=== PATIENT | female | born 1955 | race Two or more races ===

== ENCOUNTER 2024-11-21 09:31 | Inpatient (IN) | payer OTHER, MEDICAID ==
[~2024-11-21] VITALS: Ht 157.5 cm; Wt 90.7 kg
[~2024-11-21 09:31] MED LIST: AMLO1TAB22; EZET10TA24; LISI20TA56; METF-1145; METH-552; PLAVIX
--- NOTE | 2024-11-21 10:31 | ED.PDOC ---
History of Present Illness HPI Comments 69-year-old female came to the ER stating that she has been having headache for the past several days. Has been having these headaches on and off for many years. Being followed at [facility] for the headaches with no workup. Patient also complain of having diabetes hypertension and CVA many times. Able to ambulate. Denies nausea vomiting dizziness. Denies any other symptoms. Chief Complaint: Headache Time Seen by MD: 09:40 Reviewed Notes: Nurses Notes, Medications, Allergies Allergies: Coded Allergies: NO KNOWN ALLERGIES (Unverified , 01/10/10) Home Meds Reported Medications Methimazole (Methimazole) 10 Mg Tab, 1 QAM 01/10/10 Ezetimibe-Simvastatin (Vytorin) 1 Tab Tab, DAILY 01/10/10 Metformin Hydrochloride (Metformin Hcl Er) 500 Mg Tab, 4 DAILY 01/10/10 Lisinopril (Lisinopril) 20 Mg Tab, 1 DAILY 01/10/10 Amlodipine Besylate (Amlodipine Besylate) 5 Mg Tab, 1 DAILY 01/10/10 [Plavix] No Conflict Check, 1 DAILY 01/10/10 Information Source: Patient Mode of Arrival: Ambulatory Severity: Moderate Timing: Days Duration: Since onset Past Medical History PAST MEDICAL HISTORY: DM, HTN Surgical History: Denies all surgeries 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 History: No Pertinent 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 ANALYST History Social History Smoker: Non-Smoker Alcohol: Denies ETOH Use Drugs: Denies Drug Use Constitutional: denies: chills, diaphoresis, fatigue, fever, malaise, sweats, weakness, others EENTM: denies: blurred vision, double vision, ear bleeding, ear discharge, ear drainage, ear pain, ear ringing, eye pain, eye redness, hearing loss, mouth pain, mouth swelling, nasal discharge, nose bleeding, nose congestion, nose pain, photophobia, tearing, throat pain, throat swelling, voice changes, others Respiratory: denies: cough, hemoptysis, orthopnea, SOB at rest, shortness of breath, SOB with excertion, stridor, wheezing, others Cardiovascular: denies: chest pain, dizzy spells, diaphoresis, Dyspnea on exertion, edema, irregular heart beat, left arm pain, lightheadedness, palpitations, PND, syncope, others Gastrointestinal: denies: abdomen distended, abdominal pain, blood streaked bowels, constipated, diarrhea, dysphagia, difficulty swallowing, hematemesis, melena, nausea, poor appetite, poor fluid intake, rectal bleeding, rectal pain, vomiting, others Genitourinary: denies: abnormal vagina bleeding, burning, dyspareunia, dysuria, flank pain, frequency, hematuria, incontinence, pain, , vagina discharge, urgency, others Neurological: reports: headache; denies: dizziness, fainting, left sided numbness, left sided weakness, numbness, paresthesia, pre-existing deficit, right sided numbness, right sided weakness, seizure, speech problems, tingling, tremors, weakness, others Musculoskeletal: denies: back pain, gout, joint pain, joint swelling, muscle pain, muscle stiffness, neck pain, others Integumetry: denies: bruises, change in color, change in hair/nails, dryness, laceration, lesions, lumps, rash, wounds, others Allergic/Immunocompromised: denies: Difficulty Healing, Frequent Infections, Hives, Itching, others Hematologic/Lymphatic: denies: anemia, blood clots, easy bleeding, easy bruising, swollen glands, others Endocrine: denies: excessive hunger, excessive sweating, excessive thirst, excessive urination, flushing, intolerance to cold, intolerance to heat, unexplained weight gain, unexplained weight loss, others Psychiatric: denies: anxiety, bipolar disorder, depression, hopeless, panic disorder, schizophrenia, sleepless, suicidal, others Physical Exam General Appearance: Moderate Distress HEENT: Normal ENT Inspection, Pharynx Normal, TMs Normal Neck: Full Range of Motion, Non-Tender, Normal, Normal Inspection Respiratory: Chest Non-Tender, Lungs Clear, No Accessory Muscle Use, No Respiratory Distress, Normal Breath Sounds Cardiovascular: No Edema, No JVD, No Murmur, No Gallop, Normal Peripheral Pulses, Regular Rate/Rhythm Breast Exam: Deferred Gastrointestinal: No Organomegaly, Non Tender, No Pulsatile Mass, Normal Bowel Sounds, Soft Genitalia: Deferred Pelvic: Deferred Rectal: Deferred Extremities: No calf tenderness, Normal capillary refill, Normal inspection, Normal range of motion, Non-tender, No pedal edema Musculoskeletal : Apperance: Normal Neurologic: Alert, chancery clerk II-XII nml as Tested, No Motor Deficits, Normal Affect, Normal Mood, No Sensory Deficits Cerebellar Function: Normal Reflexes: Normal Skin: Dry, Normal Color, Warm Peripheral Pulses: 3+ Radial (R), 3+ Radial (L) Lymphatic: No Adenopathy Was a procedure done? Was a procedure done?: No Differential Dx Considerations may include: TIA Migraine X-Ray, Labs, Meds, VS Vital Signs Date Time Temp Pulse Resp B/P (MAP) Pulse Ox O2 Delivery O2 Flow Rate FiO2 11/21/24 11:14 98.7 69 16 158/72 (100) 97 98.7 11/21/24 11:14 69 16 97 Room Air 11/21/24 09:48 97.5 66 18 135/64 (87) 99 97.5 Current Medications Medications (Trade) Dose Ordered Sig/Kiran Route Start Time Stop Time Status Last Admin Acetaminophen/ Hydrocodone Bitart ([place] 10/325MG Tab) 1 tab ONCE ONCE PO 11/21/24 10:15 11/21/24 10:16 DC 11/21/24 11:13 [place] [address] Ph: [phone] DIAGNOSTIC IMAGING Diagnostic Imaging Report : [id number] Signed PATIENT: ANTHONY LOWE ACCT: [id number] UNIT: [id number] : 1955 LOC: ER ROOM / BED: / AGE / SEX: 69 / F ADM STATUS: REG ER SERVICE 1001 ORDERING PHYSICIAN: KM GUZMAN MD PROCEDURE(s): HWOCT - HEAD WITHOUT CONTRAST REASON: tia ORDER NUMBER(s): [id number], ACCESSION NUMBER(s): [id number] CT brain without contrast CLINICAL INDICATION: tia FINDINGS: The study was performed in a multidetector scanner. This study performed taking axial images from the skull base up to the vertex. Both brain and bone windows are photographed. Dose lowering techniques have been used including automated exposure control and adjustment of mA and/or KV according to patient size. No intraparenchymal hemorrhage. No extra-axial hemorrhage. There is an area of encephalomalacia in the right frontal lobe. Small lacunar infarct in the left external capsule/ lentiform nucleus. There is no hydrocephalus. No midline shift. There is bifrontal cortical sulcal prominence. IMPRESSION: 1. No acute intracranial pathology. Question subacute CVA versus resolving hematoma right frontal lobe Computed Tomographic Radiation Dosimetry Report: Total CTDI vol = 54.55mGy Total DLP = 1006.85mGy-cm All CT scans at this medical facility are performed using dose modulation techniques as appropriate to a performed exam including the following: Automated exposure control was utilized; adjustment of the MA and/or KvP according to patient size; and use of iterative reconstruction technique. ATED BY: PAUL DESAI MD DICTATED DATE/TIME: 11/21/24 103 SIGNED BY: PAUL DESAI MD SIGNED DATE/TIME: 11/21/241035 CC: Patient alert. Complaining of headache. Vitals stable. Answering all questions. Was given [place]pec[place]. CT of the head reviewed does not show any acute changes. Possibly will need can not duplex study. Possibly will need MRI. No neurological deficit. Has good strength in all extremities. No leg swelling. No chest pain. No shortness a breath. She was seen at [place] yesterday for which they discharged her without any further testing. Explained to the patient. [place] approved inpatient admission [id number]. Time of 1ST Reevaluation: 10:29 Reevaluation 1ST: Unchanged Patient Education/Counseling: Diagnosis, Treatment, Prognosis, Need For Follow Up Family Education/Counseling: No Family Present SEPSIS Sepsis Screen Date sepsis recognized/suspect: Nov 21, 2024 Time Sepsis recognized/suspect: 949 Recent Procedure: No On Antibiotic Therapy: No Respiratory Rate >20: No Heart Rate >90: No Temp<36 C (96.8 F) or >38.3 C: No SBP <90 or MAP <65 mmHG: No New Acute Mental Status Change: No Is the patient on CPAP, BIPAP,: No Physician Orders Head Without Contrast (11/21/24 10:01) Complete Blood Count (11/21/24 12:16) Urinalysis (11/21/24 12:16) Basic Metabolic Panel (11/21/24 12:16) Vital Signs Date Time Temp Pulse Resp B/P (MAP) Pulse Ox O2 Delivery O2 Flow Rate FiO2 11/21/24 11:14 98.7 69 16 158/72 (100) 97 98.7 11/21/24 11:14 69 16 97 Room Air 11/21/24 09:48 97.5 66 18 135/64 (87) 99 97.5 Medications Medications Dose Ordered Sig/Kiran Route Start Time Stop Time Status Last Admin Dose Admin Acetaminophen/ Hydrocodone Bitart 1 tab ONCE ONCE PO 11/21/24 10:15 11/21/24 10:16 DC 11/21/24 11:13 Departure 1 Departure Time of Disposition: 10:30 Impression: Primary Impression: TIA (transient ischemic attack) Additional Impression: Headache Qualified Codes: G44.229 - Chronic tension-type headache, not intractable Disposition: ADMITTED INPATIENT Admit to: Med Surg Condition: Guarded Critical Care Note Critical Care Time?: No Stability Stability form required: No Heart Score Heart Score: Heart Score Response (Comments) Value History N/A 0 EKG N/A 0 Age N/A 0 Risk Factors N/A 0 Troponin N/A 0 Total 0 I personally scribed for KM GUZMAN MD ([email or web address]) on 11/21/24 at 11:25. Electronically submitted by Sydnie Alberts ([email or web address]). KM GUZMAN MD Nov 21, 2024 10:31
--- NOTE | 2024-11-21 10:39 | DVH ---
CT brain without contrast CLINICAL INDICATION: tia FINDINGS: The study was performed in a multidetector scanner. This study performed taking axial image s from the skull base up to the vertex. Both brain and bone windows are photographed. Dose lowering techniques have been used including automated exposure control and adjustment of mA and /or KV according to patient size. No intraparenchymal hemorrhage. No extra-axial hemorrhage. There is an area of encephalomalacia in the right frontal lobe. Small lacunar infarct in the left ext ernal capsule/ lentiform nucleus. There is no hydrocephalus. No midline shift. There is bifrontal cortical sulcal prominence. IMPRESSION: 1. No acute intracranial pathology. Question subacute CVA versus resolving hematoma right frontal lob e Computed Tomographic Radiation Dosimetry Report: Total CTDI vol = 54.55mGy Total DLP = 1006.85mGy-cm All CT scans at this medical facility are performed using dose modulation techniques as appropriate t o a performed exam including the following: Automated exposure control was utilized; adjustment of th e MA and/or KvP according to patient size; and use of iterative reconstruction technique.
[2024-11-21 11:00] VITALS: PULSE 89; RESP 14; O2SAT 97
[2024-11-21] MEDS: HYDROcodone-ACET 10/325MG TAB PO ONE (11:13)
[2024-11-21 12:42] LABS: Basophils # (auto) 0.1 10 ^3/uL (0-0.2); Basophils % (auto) 0.8 % (0.0-2.0); Eosinophils # (auto) 0.2 10 ^3/uL (0-0.8); Eosinophils % (auto) 2.4 % (0.0-7.0); Hematocrit 43.1 % (36.0-46.0); Hemoglobin 14.6 g/dL (12.2-16.2); Lymphocytes # (auto) 1.8 10 ^3/uL (0.4-5.4); Lymphocytes % (auto) 27.3 % (10.0-50.0); Mean Corpuscular Hemoglobin 29.7 pg (28.0-32.0); Mean Corpuscular Hgb Conc. 33.9 g/dL (32.0-36.0); Mean Corpuscular Volume 87.5 fL (80.0-100.0); Monocytes # (auto) 0.4 10 ^3/uL (0-1.3); Monocytes % (auto) 6.1 % (0.0-12.0); Neutrophils # (auto) 4.1 10 ^3/uL (1.6-8.6); Neutrophils % (auto) 63.4 % (37.0-80.0); Platelet Count (auto) 179 10^3/uL (140-450); Red Blood Cells 4.93 10^6/uL (4.0-5.20); White Blood Cell 6.5 10^3/uL (4.4-10.8)
[2024-11-21 12:52] LABS: Potassium 3.8 mmol/L (3.5-5.1); Sodium 141 mmol/L (136-145)
[2024-11-21 12:53] LABS: Anion Gap 8 (5-15); Carbon Dioxide 26 mmol/L (20-31)
[2024-11-21 12:56] LABS: Chloride 107 mmol/L (98-107)
[2024-11-21 12:58] LABS: BUN/Creatinine Ratio 14.3 (10.0-20.0); Blood Urea Nitrogen 14 mg/dL (9-23); Glucose 160 mg/dL (74-106)
--- NOTE | 2024-11-21 13:35 | DVHHP2 ---
Review of Systems Allergies: Coded Allergies: NO KNOWN ALLERGIES (Unverified , 01/10/10) Exam Vital Signs Vital Signs Date Time Temp Pulse Resp B/P (MAP) Pulse Ox O2 Delivery O2 Flow Rate FiO2 11/21/24 11:14 98.7 69 16 158/72 (100) 97 98.7 11/21/24 11:14 Room Air Labs/Xrays Labs Test 11/21/24 12:24 Range/Units White Blood Count 6.5 4.4-10.8 10^3/uL Red Blood Count 4.93 4.0-5.20 10^6/uL Hemoglobin 14.6 12.2-16.2 g/dL Hematocrit 43.1 36.0-46.0 % Mean Corpuscular Volume 87.5 80.0-100.0 fL Mean Corpuscular Hemoglobin 29.7 28.0-32.0 pg Mean Corpuscular Hemoglobin Concent 33.9 32.0-36.0 g/dL Red Cell Distribution Width 15.0 H 11.8-14.3 % Platelet Count 179 140-450 10^3/uL Mean Platelet Volume 10.2 6.9-10.8 fL Neutrophils (%) (Auto) 63.4 37.0-80.0 % Lymphocytes (%) (Auto) 27.3 10.0-50.0 % Monocytes (%) (Auto) 6.1 0.0-12.0 % Eosinophils (%) (Auto) 2.4 0.0-7.0 % Basophils (%) (Auto) 0.8 0.0-2.0 % Neutrophils # (Auto) 4.1 1.6-8.6 10 ^3/uL Lymphocytes # (Auto) 1.8 0.4-5.4 10 ^3/uL Monocytes # (Auto) 0.4 0-1.3 10 ^3/uL Eosinophils # (Auto) 0.2 0-0.8 10 ^3/uL Basophils # (Auto) 0.1 0-0.2 10 ^3/uL Nucleated Red Blood Cells 0.0 % Sodium Level 141 136-145 mmol/L Potassium Level 3.8 3.5-5.1 mmol/L Chloride Level 107 98-107 mmol/L Carbon Dioxide Level 26 20-31 mmol/L Anion Gap 8 5-15 Blood Urea Nitrogen 14 9-23 mg/dL Creatinine 0.98 0.550-1.02 mg/dL Glomerular Filtration Rate Calc 62 >90 mL/min BUN/Creatinine Ratio 14.3 10.0-20.0 Serum Glucose 160 H 74-106 mg/dL Calcium Level 10.0 8.7-10.4 mg/dL Assessment/Plan Assessment/Plan acute intractable headache subacute stroke vs hematoma frontal head found on ct scan Neurology consult fu recs ordered MRI of the brain to be determined by neurology Stroke protocol and precautions PT OT eval and treat npo for now ordered asa atorvastatin ordered neuro checks q2h fall precautions Bedrest ordered Carotid Doppler study ordered Echo chronic problems dm htn cva fen/ppx npo hl no gi ppx since no hx of gerds or gi bleed no dvt ppx since ct scan shows ? hematoma plan admit to [facility] neuro check and close monitoring LOTTIE BARKER [facility] Nov 21, 2024 13:35
[2024-11-21] MEDS: HYDROcodone-ACET 5/325MG TAB PO ONE (18:42)
[2024-11-21] MEDS ORDERED: HYDROcodone-ACET 5/325MG TAB ONE (18:42)
--- NOTE | 2024-11-21 18:55 | PRN ---
Misceleneous Note Note Note i had spoke with er to call neurology prior to admitting patient this was at [address] scan ?hematoma on brain pt will likely need neurosx consult, which not available did tell escrow secretary Az that pt will be placed back on orders until er team reviewed with neurology if they will be able to handle patient results here still pending what er decision is before admission can be completed it appears pt will need higher level of care LOTTIE BARKER [facility] Nov 21, 2024 18:55
[2024-11-21 18:57] LABS: Urine Bacteria None Seen /hpf (None Seen)
[2024-11-21 19:38] LABS: Urine Blood Negative /uL (Negative); Urine Clarity Clear (Clear); Urine Color Yellow (Yellow); Urine Hyaline Cast FEW /lpf (0 - 2); Urine Mucus FEW (None Seen); Urine Protein, UAD TRACE (Negative); Urine Specific Gravity 1.025 (1.001-1.035); Urine Squamous Epithelial Cell FEW /hpf (<5); Urine Urobilinogen Normal (Negative); Urine WBC 3 /HPF (0-5); Urine pH 5.5 (5.0-9.0)
--- NOTE | 2024-11-21 19:50 | DVHINCON2 ---
Date of service: Nov 21, 2024 Referring Physician Roopa Reason for Consultation Subacute CVA versus hematoma right from lobe History of Present Illness This is a stat consult is a 69 years old right-handed female with a history of hypertension, diabetes, atrial fibrillation, chronic stroke, he came to the [facility] on 11/21 24 with a chief company of headache. At this time, he is alert and oriented x3, he provided following history She denies a history of headache (ER: Has been having these headaches on and off for many years), but since 11/16/2024, she has had constant progressive global headache, her vision became dark at home but has recovered to normal after she came to the hospital, she denies nausea, vomiting, she denies focal weakness numbness, she denies associated chills, fever, coughing, nausea, vomiting. She has no recent fall or head injury She had four strokes with the last one around 2004, the stroke were several years apart, all caused right facial drooping, left-sided weakness, and the patient was seen in the hospitals, and she was said to have stroke. According to her home medication list, he is on Pradaxa 150 mg b.i.d., but I do not see statin agent, he also takes diabetes and hypertension medications I noticed and the patient's confirm she is bed shaking in her arms, legs, he denies a history of tremors, but has been shaking in the hospital today because she has not been eating all day long, and she is very hungry. Talked to ER charge nurse, he is going to have a Accu-Chek and food Urinalysis, 11/21/2024: Unremarkable CBC, 11/21/2024: Unremarkable BMP, 11/21/2024: ok CT head, 11/21/2024: No acute intracranial pathology. Question subacute CVA versus resolving hematoma right frontal lobe (There is an area of encephalomalacia in the right frontal lobe. Small lacunar infarct in the left external capsule/ lentiform nucleus Past Medical History Hypertension, diabetes, AFib, stroke Past Surgical History Pacemaker insertion in 2022, heart valve repair Family History Hypertension, diabetes, cancer Social History She was a tobacco smoker, she denies a history of drug, or alcohol abuse Allergies: Coded Allergies: NO KNOWN ALLERGIES (Unverified , 8/15/10) Home Meds Reported Medications Methimazole (Methimazole) 10 Mg Tab, 1 QAM 01/10/10 Ezetimibe-Simvastatin (Vytorin) 1 Tab Tab, DAILY 01/10/10 Metformin Hydrochloride (Metformin Hcl Er) 500 Mg Tab, 4 DAILY 01/10/10 Lisinopril (Lisinopril) 20 Mg Tab, 1 DAILY 01/10/10 Amlodipine Besylate (Amlodipine Besylate) 5 Mg Tab, 1 DAILY 01/10/10 [Plavix] No Conflict Check, 1 DAILY 01/10/10 Review of Systems As above, the other systems are negative Vital Signs Vital Signs Date Time Temp Pulse Resp B/P (MAP) Pulse Ox O2 Delivery O2 Flow Rate FiO2 11/21/24 18:24 97.2 70 20 151/75 (100) 95 97.2 11/21/24 11:14 Room Air 11/21/24 11:00 0 21 Physical Exam GENERAL EXAM: General: the patient is well developed and nourished. No acute distress. HEENT: Normocephalic, neck is supple, no carotid bruits. No mass. RESPIRATORY: Normal respiratory effort with symmetrical lung expansion. Lungs clear to auscultation. CARDIOVASCULAR: Regular rate and rhythm with no murmurs. S1, S2. ABDOMEN: Soft, nontender, normal bowel sound NEUROLOGICAL: MENTAL STATUS: Awake and alert. Oriented to person, place, time. Able to give personal history. T SPEECH, LANGUAGE, HIGHER CORTICAL FUNCTION: no aphasia or dysathria. CRANIAL NERVES: #2: Intact visual motron to confrontation. The optic discs were sharp. #3,4,6: Pupils are equal, round and reactive. EOMs full and conjugate. #5: Facial sensation intact in all three divisions bilaterally. Mandibular strength intact. #7: Facial muscles symmetrical and strength intact. #8: Hearing grossly normal to voice. #9,10: Uvula and soft palate rise in the midline. Swallow and voice are normal. #11: Trapezius and sternomastoid strength intact bilaterally. #12: Tongue midline. No fasciculations or atrophy. SENSATION: Sensation to touch and pinprick is normal. MOTOR: Normal tone in the upper and lower extremity. Normal muscle bulk. No fasciculations. She has continuous tremor in the hands and legs, Muscle strength of the major groups in the upper extremities is 5/5. Muscle strength of the major groups in the lower extremities is 5/5. REFLEXES: Deep tendon reflexes normal and symmetrical. No pathological reflexes. CEREBELLAR/COORDINATION: Finger to nose is normal bilaterally. GAIT/STATION: Unremarkable Labs/Diagnostic Data Labs Test 11/21/24 18:40 11/21/24 12:24 Range/Units Urine Color Yellow Yellow Urine Clarity Clear Clear Urine pH 5.5 5.0-9.0 Urine Specific [place] 1.025 1.001-1.035 Urine Protein Trace H Negative Urine Ketones Negative Negative Urine Blood Negative Negative /uL Urine Nitrite Negative Negative Urine Bilirubin Negative Negative Urine Urobilinogen Normal Negative mg/dL Urine Leukocyte Esterase Negative Negative /uL Urine RBC 1 0 - 4 /hpf Urine Microscopic WBC 3 0-5 /HPF Urine Squamous Epithelial Cells Few <5 /hpf Urine Bacteria None seen None Seen /hpf Urine Hyaline Casts Few 0 - 2 /lpf Urine Mucus Few None Seen Urine Glucose Normal Normal mg/dL White Blood Count 6.5 4.4-10.8 10^3/uL Red Blood Count 4.93 4.0-5.20 10^6/uL Hemoglobin 14.6 12.2-16.2 g/dL Hematocrit 43.1 36.0-46.0 % Mean Corpuscular Volume 87.5 80.0-100.0 fL Mean Corpuscular Hemoglobin 29.7 28.0-32.0 pg Mean Corpuscular Hemoglobin Concent 33.9 32.0-36.0 g/dL Red Cell Distribution Width 15.0 H 11.8-14.3 % Platelet Count 179 140-450 10^3/uL Mean Platelet Volume 10.2 6.9-10.8 fL Neutrophils (%) (Auto) 63.4 37.0-80.0 % Lymphocytes (%) (Auto) 27.3 10.0-50.0 % Monocytes (%) (Auto) 6.1 0.0-12.0 % Eosinophils (%) (Auto) 2.4 0.0-7.0 % Basophils (%) (Auto) 0.8 0.0-2.0 % Neutrophils # (Auto) 4.1 1.6-8.6 10 ^3/uL Lymphocytes # (Auto) 1.8 0.4-5.4 10 ^3/uL Monocytes # (Auto) 0.4 0-1.3 10 ^3/uL Eosinophils # (Auto) 0.2 0-0.8 10 ^3/uL Basophils # (Auto) 0.1 0-0.2 10 ^3/uL Nucleated Red Blood Cells 0.0 % Sodium Level 141 136-145 mmol/L Potassium Level 3.8 3.5-5.1 mmol/L Chloride Level 107 98-107 mmol/L Carbon Dioxide Level 26 20-31 mmol/L Anion Gap 8 5-15 Blood Urea Nitrogen 14 9-23 mg/dL Creatinine 0.98 0.550-1.02 mg/dL Glomerular Filtration Rate Calc 62 >90 mL/min BUN/Creatinine Ratio 14.3 10.0-20.0 Serum Glucose 160 H 74-106 mg/dL Calcium Level 10.0 8.7-10.4 mg/dL Assessment New onset daily headache, etiology unclear Possible stroke versus resolving hematoma in right frontal lobe per CT scan Chronic multiple strokes (Per history and CT head) Tremors, possibly secondary to hypoglycemia Plan/Recommendation Monitoring Supportive treatment Telemetry Lipitor profile MRI brain scan Carotid Doppler Echocardiogram Continued home medications: Precedex 150 mg b.i.d. or Lovenox l More recommendation per clinical course Prognosis: Poor This medical document was created using an electronic medical record system with [employer] computerized dictation system. Although this document has been carefully reviewed, there may still be some phonetic and typographical errors. These areas are purely typographical due to imperfections of the software programs, and do not reflect any compromise in the patient's medical care. Plan discussed with: Patient, Other SRINATH PONCE MD Nov 21, 2024 19:50
[2024-11-21] MEDS ORDERED: LORazepam 2MG/ML-1ML VIAL IV PRN (21:00)
--- NOTE | 2024-11-21 21:34 | DVH ---
Carotid Duplex Date: 11/21/2024 08:55 PM Clinical History: CVA Comparison: None Technique: Duplex Doppler evaluation of the extracranial carotid and vertebral arteries including col or Doppler and spectral/pulsed waveform analysis was performed. Findings: RIGHT SIDE: The peak systolic velocities are 56 cm/s in the distal CCA and 71 cm/s in the proximal ICA.The ICA/CC A ratio is less than 2. The external carotid artery is patent with peak systolic velocity of 64 cm/s proximally. There is appropriate antegrade flow in the right vertebral artery. LEFT SIDE: The peak systolic velocities are 32 cm/s in the distal CCA and 84 cm/s in the proximal ICA.. The ICA/ CCA ratio is less than 2. The external carotid artery is patent with peak systolic velocity of 56 cm/s proximally. There is appropriate antegrade flow in the left vertebral artery. IMPRESSION: 1. No hemodynamically significant stenosis noted in the right carotid system. 2. No hemodynamically significant stenosis noted in the left carotid system. 3. Reference: Radiology 2003; 229:340-346
[2024-11-21 22:00] VITALS: PULSE 79; RESP 14; O2SAT 99
[2024-11-21] MEDS: ENOXAPARIN SOD 100 MG/1 ML SYRINGE SC SCH (22:40)
[2024-11-21] MEDS ORDERED: ENOXAPARIN SOD 100 MG/1 ML SYRINGE SC ONE (22:41)
[2024-11-22] VITALS (8 sets, daily range): BP systolic 126–144; BP diastolic 53–86; PULSE 67–81; RESP 17–18; TEMP 97.4–98; O2SAT 94–98
[2024-11-22] MEDS ORDERED: ACETAMINOPHEN 325 MG TAB PO PRN (01:45)
[2024-11-22] MEDS: ACETAMINOPHEN 325 MG TAB PO ONE (02:04)
[2024-11-22] MEDS: IBUPROFEN 600 MG TAB PO ONE (02:04)
[2024-11-22] MEDS: GABAPENTIN 100 MG CAP PO ONE (02:16)
[2024-11-22] MEDS: INSULIN LANTUS (GLARGINE) 1 /0.01ml (100units/ml) SC ONE (02:17)
--- NOTE | 2024-11-22 04:39 | DVHHPRES ---
History of Present Illness Resident Creating Document: JHTrevaAdanCHRISTINE ArellanoJANET RESIDENT History of Present Illness Patient is a 69-year-old female with a past medical history of atrial fibrillation, hypertension, type 2 diabetes mellitus, multiple strokes, hyperlipidemia presented to the ER with a chief complaint of headache for the la st 4-5 days. Patient reported that she has been having headaches since the last 4-5 days which is on the right side, associated nausea and photophobia, chills denied any fever. Patient reported that she had an episode of blurred, dark vision for less than a minute 2 days ago, denied any history of fall or loss of consciousness. Patient denied any focal weakness. She does report history of migraine headaches. From the history of strokes patient has a residual left- sided mild weakness and earlier she used to have a stick to help with the walking but now she walks independently. Patient denied any difficulty swallowing, no difficulty with the speech. Initial head CT without contrast showed questionable subacute CVA versus resolving hematoma of the right frontal lobe, no acute intracranial pathology following which neurology were consulted who recommended the patient to get an MRI, carotid Doppler, echocardiogram and continue monitoring. Past medical history: atrial fibrillation, hypertension, type 2 diabetes mellitus, multiple strokes, hyperlipidemia, arthritis, peripheral neuropathy Past surgical history: Open heart surgery for valve repair in 1968, pacemaker in 2021 Social history: Patient lives at home and denies smoking, alcohol, drug use Home medications: Dabigatran 150 mg b.i.d., bisoprolol 5 mg daily, hydralazine 50 mg b.i.d., lisinopril 20 mg b.i.d., rosuvastatin 20 mg daily, insulin Lantus 6 units HS, amlodipine 5 mg daily, amiodarone 100 mg daily, gabapentin 100 mg at bedtime Review of Systems Review of Systems Patient seen and examined at the bedside Reported that her headache intensity has decreased to about 7/10, right-sided with the associated photophobia still present Denies any nausea, vomiting, abdominal pain No focal weakness, no difficulty in speech or hearing or swallowing or vision Allergies: Coded Allergies: NO KNOWN ALLERGIES (Unverified , 01/10/10) Medications Current Medications Medications Dose Ordered Sig/Kiran Route Start Time Stop Time Status Last Admin Dose Admin Lorazepam 1 mg ONCE PRN IV 11/21/24 21:00 Enoxaparin Sodium 90 mg Q12HR SC 11/21/24 22:00 11/21/24 22:40 90 MG Ibuprofen 600 mg Q8HP PRN PO 11/22/24 01:45 Acetaminophen 650 mg Q6HP PRN PO 11/22/24 01:45 Hydralazine HCl 50 mg Q12HR PO 11/22/24 10:00 Lisinopril 20 mg DAILY PO 11/22/24 10:00 Pantoprazole Sodium 40 mg DAILY@0600 PO 11/22/24 06:00 Insulin Glargine 6 units HS SC 11/22/24 22:00 Amiodarone HCl 100 mg DAILY PO 11/22/24 10:00 Gabapentin 100 mg HS PO 11/22/24 22:00 Exam Vital Signs Vital Signs Date Time Temp Pulse Resp B/P (MAP) Pulse Ox O2 Delivery O2 Flow Rate FiO2 11/22/24 01:02 75 155/59 (91) 11/22/24 00:00 98.0 16 94 98.0 11/21/24 22:00 Room Air* 0 21 Exam Constipation: Patient was alert and oriented to time, place and person and does not appear to be in acute distress Gen - no pallor, no icterus, no cyanosis, no clubbing, no LAD, no edema . Skin - Patients skin is warm and dry. HEENT - normocephalic, atraumatic, moist mucous membranes. Neck - full ROM, no LAD, no JVD Pulmonary - B/L equal air entry without any rales, wheezes cardiovascular - normal S1,S2 heard. no murmurs heard. GI - soft abdomen without tenderness to palpation. no hepatospleenomegaly. [place] el sounds normoactive Neurological - Sensory: Bilateral sensation to touch, temperature and position intact Motor: Left upper and lower extremity strength 4/5, right upper and lower extremity strength 5/5 Cranial nerves CN 2- grossly normal CN 3,4,6- grossly normal normal CN 5- normal facial sensation and jaw strength CN 7- normal facial muscle strength CN 8- grossly normal CN 9,10- uvula central CN 12- tongue midline Labs/Xrays Labs Test 11/22/24 02:13 11/21/24 18:40 11/21/24 12:24 Range/Units POC Glucose 311 H 70-106 mg/dl Urine Color Yellow Yellow Urine Clarity Clear Clear Urine pH 5.5 5.0-9.0 Urine Specific [place] 1.025 1.001-1.035 Urine Protein Trace H Negative Urine Ketones Negative Negative Urine Blood Negative Negative /uL Urine Nitrite Negative Negative Urine Bilirubin Negative Negative Urine Urobilinogen Normal Negative mg/dL Urine Leukocyte Esterase Negative Negative /uL Urine RBC 1 0 - 4 /hpf Urine Microscopic WBC 3 0-5 /HPF Urine Squamous Epithelial Cells Few <5 /hpf Urine Bacteria None seen None Seen /hpf Urine Hyaline Casts Few 0 - 2 /lpf Urine Mucus Few None Seen Urine Glucose Normal Normal mg/dL White Blood Count 6.5 4.4-10.8 10^3/uL Red Blood Count 4.93 4.0-5.20 10^6/uL Hemoglobin 14.6 12.2-16.2 g/dL Hematocrit 43.1 36.0-46.0 % Mean Corpuscular Volume 87.5 80.0-100.0 fL Mean Corpuscular Hemoglobin 29.7 28.0-32.0 pg Mean Corpuscular Hemoglobin Concent 33.9 32.0-36.0 g/dL Red Cell Distribution Width 15.0 H 11.8-14.3 % Platelet Count 179 140-450 10^3/uL Mean Platelet Volume 10.2 6.9-10.8 fL Neutrophils (%) (Auto) 63.4 37.0-80.0 % Lymphocytes (%) (Auto) 27.3 10.0-50.0 % Monocytes (%) (Auto) 6.1 0.0-12.0 % Eosinophils (%) (Auto) 2.4 0.0-7.0 % Basophils (%) (Auto) 0.8 0.0-2.0 % Neutrophils # (Auto) 4.1 1.6-8.6 10 ^3/uL Lymphocytes # (Auto) 1.8 0.4-5.4 10 ^3/uL Monocytes # (Auto) 0.4 0-1.3 10 ^3/uL Eosinophils # (Auto) 0.2 0-0.8 10 ^3/uL Basophils # (Auto) 0.1 0-0.2 10 ^3/uL Nucleated Red Blood Cells 0.0 % Sodium Level 141 136-145 mmol/L Potassium Level 3.8 3.5-5.1 mmol/L Chloride Level 107 98-107 mmol/L Carbon Dioxide Level 26 20-31 mmol/L Anion Gap 8 5-15 Blood Urea Nitrogen 14 9-23 mg/dL Creatinine 0.98 0.550-1.02 mg/dL Glomerular Filtration Rate Calc 62 >90 mL/min BUN/Creatinine Ratio 14.3 10.0-20.0 Serum Glucose 160 H 74-106 mg/dL Calcium Level 10.0 8.7-10.4 mg/dL Assessment/Plan Assessment/Plan Acute intractable headache Possible migraine Possible stroke versus resolving hematoma and right frontal lobe History of multiple strokes - CT head without contrast showed no acute intracranial abnormality but questionable subacute CVA versus resolving hematoma right frontal lobe - bilateral carotid Doppler showed no hemodynamically significant stenosis - at home patient is on rosuvastatin - MRI pending - ibuprofen and acetaminophen for headache History of paroxysmal atrial fibrillation S/p permanent pacemaker implantation in 2022 Hypertensive heart disease - continued on amiodarone and inpatient started on enoxaparin - patient at home on lisinopril 20 mg b.i.d., amiodarone amlodipine 5 mg, hydralazine 50 mg b.i.d. - continue on lisinopril 20 mg daily and hydralazine 50 mg b.i.d. Type 2 diabetes mellitus with a hyperglycemia Neuropathy likely due to uncontrolled diabetes - HbA1c pending - at home patient is on insulin Lantus 6 units HS - continued on insulin Lantus at 10 units and mild sliding scale - on gabapentin PUD prophylaxis: Protonix DVT prophylaxis: Enoxaparin therapeutic dose Goals of care discussed with the patient for over 21 minutes. Full code Time spent: 37 minutes Plan discussed with Dr. Dickinson Plan discussed with: Patient My Orders Orders - BALBINA VARGAS RESIDENT Procedure Category Date Status Time Admit ADMIT 11/21/24 Transmitted 23:52 Oxygen By Nasal RT 11/21/24 Transmitted Cannula 23:52 Stat Ekg For Chest ANDERS 11/21/24 In Process Pain 23:52 Notify Of Changes ANDERS 11/21/24 In Process From Base 23:52 Cuff Slitter For ANDERS 11/21/24 In Process 24 Hours 23:52 Emergency Dysrhythmia ANDERS 11/21/24 In Process Protocol 23:52 Ibuprofen Tablet PHA 11/22/24 In Process (Motrin Tablet) 01:45 Acetaminophen Tablet PHA 11/22/24 In Process (Tylenol Tablet) 01:45 Hydralazine Hcl PHA 11/22/24 In Process Tablet (Apresoline 10:00 Lisinopril Tablet PHA 11/22/24 In Process (Zestril Tablet) 10:00 Pantoprazole Tablet PHA 11/22/24 In Process (Protonix Tablet) 06:00 Insulin Lantus PHA 11/22/24 In Process (Glargine) (Lantus) 22:00 Complete Blood Count LAB 11/22/24 Logged 05:00 Comprehensive LAB 11/22/24 Logged Metabolic Panel 05:00 Folate (Folic Acid) LAB 11/22/24 Logged 05:00 Hemoglobin A1c LAB 11/22/24 Logged 05:00 Lipid Panel LAB 11/22/24 Logged 05:00 Vitamin B12 LAB 11/22/24 Logged 05:00 Amiodarone Tablet PHA 11/22/24 In Process (Cordarone Tablet) 10:00 Gabapentin Capsule PHA 11/22/24 In Process (Neurontin Capsule) 22:00 Date of Service: Nov 21, 2024 Billing Provider: LOBO DICKINSON MD Common Visit Codes: [id number] INP/OBS CARE (HIGH) Secondary Visit Codes: [id number] CARE PLAN 30 MINUTES BALBINA VARGAS RESIDENT Nov 22, 2024 04:39
[2024-11-22] MEDS ORDERED: DEXTROSE (50%) 50ML SYRG IV PRN (04:45)
[2024-11-22] MEDS: ACCU-CHEK COMFORT CURVE STRIP VI SCH (06:15)
[2024-11-22] MEDS: PANTOPRAZOLE 40 MG TAB PO SCH (06:15)
[2024-11-22] MEDS: InsuLIN REG 1unit/0.01ml Soln (100units/ml) SC SCH (06:24)
[2024-11-22 06:37] LABS: Basophils # (auto) 0 10 ^3/uL (0-0.2); Basophils % (auto) 0.8 % (0.0-2.0); Eosinophils # (auto) 0.1 10 ^3/uL (0-0.8); Eosinophils % (auto) 2.1 % (0.0-7.0); Hematocrit 40.5 % (36.0-46.0); Hemoglobin 13.6 g/dL (12.2-16.2); Lymphocytes # (auto) 2.1 10 ^3/uL (0.4-5.4); Mean Corpuscular Hemoglobin 29.4 pg (28.0-32.0); Mean Corpuscular Hgb Conc. 33.7 g/dL (32.0-36.0); Mean Corpuscular Volume 87.2 fL (80.0-100.0); Monocytes # (auto) 0.5 10 ^3/uL (0-1.3); Monocytes % (auto) 8.4 % (0.0-12.0); Neutrophils # (auto) 3.5 10 ^3/uL (1.6-8.6); Neutrophils % (auto) 55.7 % (37.0-80.0); Platelet Count (auto) 160 10^3/uL (140-450); Red Blood Cells 4.64 10^6/uL (4.0-5.20); Red Cell Distribution Width 14.7 % (11.8-14.3); White Blood Cell 6.3 10^3/uL (4.4-10.8)
[2024-11-22] MEDS ORDERED: AMIO200T33 PO (06:41)
[2024-11-22] MEDS ORDERED: INSU100I70 SC (06:41)
[2024-11-22] MEDS ORDERED: DICL75TA3 PO (06:41)
[2024-11-22] MEDS ORDERED: GABA-1308 PO (06:42)
[2024-11-22] MEDS ORDERED: ROSU20TA14 PO (06:42)
[2024-11-22] MEDS ORDERED: AZEL0.1S (06:42)
[2024-11-22] MEDS ORDERED: HYDR25TA88 PO (06:42)
[2024-11-22] MEDS ORDERED: OMEP20TA PO (06:42)
[2024-11-22] MEDS ORDERED: BISO5TAB44 PO (06:42)
[2024-11-22 06:47] LABS: INR 1.08 (0.9-1.15); Partial Thromboplastin Time 42.7 SEC (24.5-34.5); Prothrombin Time 11.4 sec (9.3-11.8)
[2024-11-22 06:48] LABS: Alanine Aminotransferase 10 U/L (7-40); Alkaline Phosphatase 73 U/L (46-116); Anion Gap 10 (5-15); BUN/Creatinine Ratio 13.6 (10.0-20.0); Blood Urea Nitrogen 14 mg/dL (9-23); Calcium 9.9 mg/dL (8.7-10.4); Carbon Dioxide 24 mmol/L (20-31); LDL Cholesterol 52 mg/dL (< 100); Potassium 3.7 mmol/L (3.5-5.1); Sodium 142 mmol/L (136-145); Total Protein 6.2 g/dL (5.7-8.2); Triglycerides 129 mg/dL (< 150)
[2024-11-22 06:49] LABS: Albumin 3.9 g/dL (3.2-4.8); Aspartate Aminotransferase 15 U/L (<34); Bilirubin, Total 0.4 mg/dL (0.2-1.0); Cholesterol 112 mg/dL (< 200); Folate (Folic Acid) 17.02 ng/mL (>5.38); HDL Cholesterol 42 mg/dL (40-59)
[2024-11-22 06:51] LABS: Chloride 108 mmol/L (98-107); Glucose 200 mg/dL (74-106)
[2024-11-22] MEDS: hydrALAZINE HCL 25 MG TAB PO SCH (09:15)
[2024-11-22] MEDS: LISINOPRIL 20 MG TAB PO SCH (09:16)
[2024-11-22] MEDS: AMIODARONE HCL 200 MG TAB PO SCH (09:17)
--- NOTE | 2024-11-22 14:21 | DVH ---
PROCEDURE: MRI BRAIN HEAD WO CONTRAST Indication: CVA COMPARISON: CT head from 11/21/2024 TECHNIQUE: Multiplanar multisequence images of the brain are obtained. FINDINGS: There is no abnormal diffusion restriction. Right frontal encephalomalacia. Prominent left basal gang alexis perivascular space. There is no intracranial hemorrhage. No extra-axial fluid collection, mass ef fect or midline shift. The ventricles are midline and normal in size. The cisterns are patent. Normal intracranial flow voids are preserved. Numerous scattered foci susceptibility diffusely throughout t he cerebrum and posterior fossa in cortical and subcortical locations. The sinuses and mastoids are well pneumatized. The visualized orbits are unremarkable. IMPRESSION: No acute cerebrovascular ischemia. Right frontal encephalomalacia. Extensive susceptibility foci diffusely which could represent sequela of hypertensive versus amyloid angiopathy. Correlate clinically.
--- NOTE | 2024-11-22 15:52 | DVHPNRES ---
Progress Note Date Seen: Nov 22, 2024 Resident Creating Document: CY TURNER RESIDENT Medical Necessity Reason Pt with a Central, PICC or Fol: No Subjective Review of Systems 69-year-old female with a past medical history of atrial fibrillation, hypertension, type 2 diabetes mellitus, multiple strokes, hyperlipidemia presented to the ER with a chief complaint of headache for the last 4-5 days. Patient reported that she has been having headaches since the last 4-5 days which is on the right side, associated nausea and photophobia, chills denied any fever. Patient reported that she had an episode of blurred, dark vision for less than a minute 2 days ago, denied any history of fall or loss of consciousness. Patient denied any focal weakness. She does report history of migraine headaches. From the history of strokes patient has a residual left- sided mild weakness and earlier she used to have a stick to help with the walking but now she walks independently. Patient denied any difficulty swallowing, no difficulty with the speech. Initial head CT without contrast showed questionable subacute CVA versus resolving hematoma of the right frontal lobe, no acute intracranial pathology following which neurology were consulted who recommended the patient to get an MRI, carotid Doppler, echocardiogram and continue monitoring. Doppler shows no Cariiiiiiiotid artery stenosis. Objective vital signs Vital Sign Date Time Temp Pulse Resp B/P (MAP) Pulse Ox O2 Delivery O2 Flow Rate FiO2 11/22/24 14:29 97.5 69 17 140/79 (99) 96 97.5 11/22/24 08:00 Room Air* 0 21 Total Intake and Output 11/21/24 11/21/24 11/22/24 15:00 23:00 07:00 Intake Total 0 ml Balance 0 ml medications Current Medications Medications Dose Ordered Sig/Kiran Route Start Time Stop Time Status Last Admin Dose Admin Lorazepam 1 mg ONCE PRN IV 11/21/24 21:00 Ibuprofen 600 mg Q8HP PRN PO 11/22/24 01:45 Acetaminophen 650 mg Q6HP PRN PO 11/22/24 01:45 Hydralazine HCl 50 mg Q12HR PO 11/22/24 10:00 11/22/24 09:15 50 MG Lisinopril 20 mg DAILY PO 11/22/24 10:00 11/22/24 09:16 20 MG Pantoprazole Sodium 40 mg DAILY@0600 PO 11/22/24 06:00 11/22/24 06:15 40 MG Amiodarone HCl 100 mg DAILY PO 11/22/24 10:00 11/22/24 09:17 100 MG Gabapentin 100 mg HS PO 11/22/24 22:00 Atorvastatin Calcium 40 mg HS PO 11/22/24 22:00 Insulin Glargine 10 units HS SC 11/22/24 22:00 Diagnostic Test (Pha) 1 strip ACHS 11/22/24 07:00 11/22/24 11:44 1 STRIP Insulin Human Regular AC SC 11/22/24 07:00 11/22/24 06:24 2 UNITS Dextrose 50 ml UD PRN IV 11/22/24 04:45 Examination Gen - no pallor, no icterus, no cyanosis, no clubbing, no LAD, no edema . Skin - Patients skin is warm and dry. HEENT - normocephalic, atraumatic, moist mucous membranes. Neck - full ROM, no LAD, no JVD Pulmonary - B/L equal air entry without any rales, wheezes cardiovascular - normal S1,S2 heard. no murmurs heard. GI - soft abdomen without tenderness to palpation. no hepatospleenomegaly. Bowel sounds normoactive Neurological - Sensory: Bilateral sensation to touch, temperature and position intact Motor: Left upper and lower extremity strength 4/5, right upper and lower extremity strength 5/5. laboratory and microbiology Laboratory Tests 11/22/24 05:24 Test 11/22/24 05:24 Range/Units Serum Glucose 200 H 74-106 mg/dL Problem List/Assessment/Plan Problem List/Assessment/Plan # Acute intractable headache # Possible migraine with aura # Possible stroke versus resolving hematoma and right frontal lobe # History of multiple strokes - CT head without contrast showed no acute intracranial abnormality but questionable subacute CVA versus resolving hematoma right frontal lobe - bilateral carotid Doppler showed no hemodynamically significant stenosis - at home patient is on rosuvastatin - MRI pending - ibuprofen and acetaminophen for headache - hold anticoagulation for now # History of paroxysmal atrial fibrillation # S/p permanent pacemaker implantation in 2022 # Hypertensive heart disease - continued on amiodarone - hold anticoagulation for now - patient at home on lisinopril 20 mg b.i.d., amiodarone amlodipine 5 mg, hydralazine 50 mg b.i.d. - continue on lisinopril 20 mg daily and hydralazine 50 mg b.i.d. # Type 2 diabetes mellitus with a hyperglycemia # Neuropathy likely due to uncontrolled diabetes - HbA1c : 8.2 - at home patient is on insulin Lantus 6 units HS - continued on insulin Lantus at 10 units and mild sliding scale - on gabapentin PUD prophylaxis: Protonix DVT prophylaxis: Hold anticoagulation for now due given history of intracranial hamartoma Patient is not stable for transfer today, Goals of care discussed with the patient for 26 minutes. Full code Time spent: 37 minutes Plan discussed with Dr. Parks Plan discussed with: Patient, Spouse Date of Service: Nov 22, 2024 Billing Provider: PEACE MAJOR MD Common Visit Codes: [id number] INP/OBS CARE(HIGH) CY TURNER RESIDENT Nov 22, 2024 15:52 PEACE MAJOR MD Nov 25, 2024 22:20
--- NOTE | 2024-11-22 19:50 | DVHSR ---
APPROVED REPORT EXAM: LIMITED Two-dimensional echocardiogram with contrast. Blood Pressure: 138/69 mmHg INDICATION CVA/TIA: Surgery/Intervention Pacemaker: Mitral valve Repair 1969 RISK FACTORS Obesity: Height: 5'2, Weight: 192 DIMENSIONS LVDd4.7 (3.8-5.7cm)LA (2D)4.6 (1.9-4.0cm)Aortic Root3.5 (2.0-3.7cm) LVDs3.6 (2.5-4.0cm)LA (MM) (1.9-4.0cm)Aortic Cusp Exc1.4 (1.5-2.0cm) EF (%) 50.0 (55-70%)Rt. Atrium4.5 (1.9-4.0cm)Asc. Aorta3.1 cm IVSd1.5 (0.7-1.1cm)RV (D) (1.8-2.4cm) PWd1.5 (0.7-1.1cm) Mitral Valve MitralMitral Stenosis E wave0.98m/sMV Mean GR.mmHg A wave1.08m/sMV Peak GR.91mmHg E/A ratio0.92D MVAcm2 DECEL [id number] 1/2 [place] Aortic Valve Aortic ValveAortic Stenosis V11.01m/[place] Mean GR.2mmHg V21.00m/[place] Peak GR.4mmHg LVOT Diameter2.1 (1.8-2.4cm)Doppler AVA3.50cm2 Pulmonic Valve V20.85m/s Tricuspid Valve TR Velocity2.58m/s [id number] Conclusion MILD LVH AND MILD LV DIASTOLIC DYSFUNCTION LV EF IS 60% AND IS NORMAL DYSKINESIS OF IVS MODERATELY DILATED RV AND RA NORMAL VALVES NO EFFUSION
[2024-11-22] MEDS: ATORVASTATIN 20 MG TAB PO SCH (21:56)
[2024-11-22] MEDS: GABAPENTIN 100 MG CAP PO SCH (21:57)
[2024-11-22] MEDS: IBUPROFEN 600 MG TAB PO PRN (21:58)
[2024-11-22] MEDS ORDERED: INSULIN LANTUS (GLARGINE) 1 /0.01ml (100units/ml) SC SCH (22:00)
[2024-11-22] MEDS: INSULIN LANTUS (GLARGINE) 1 /0.01ml (100units/ml) SC SCH (22:13)
--- NOTE | 2024-11-22 23:20 | DVHPN2 ---
Progress Note - Dictate Date Seen: Nov 22, 2024 Medical Necessity Reason Pt with a Central, PICC or Fol: No Subjective is a 69 years old right-handed female with a history of hypertension, diabetes, atrial fibrillation, chronic stroke, he came to the [facility] on 11/21 24 with a chief complaint of headache. I have seen and examined the patient, I have talked to her nurse, she is doing better today, no tremors, no new complaints MR brain scan showed old encephalomalacia but no acute abnormality She has no shaking, she reports the tremor went away after she was given food in the emergency room yesterday Her anticoagulation treatment was on hold, I suspect for the questionable signs of brain hemorrhage (I have reviewed primary care team's note) Urinalysis, 11/21/2024: Unremarkable CBC, 11/21/2024: Unremarkable BMP, 11/21/2024: ok TG/HDL/LDL/HDL, 11/22/2024: 129/112/52/48 Vitamin B12, 11/22/2024: 550 Folic acid, 11/22/2024: 17.02 Echocardiogram, 11/22/2024: MILD LVH AND MILD LV DIASTOLIC DYSFUNCTION LV EF IS 60% AND IS NORMAL DYSKINESIS OF IVS MODERATELY DILATED RV AND RA NORMAL VALVES NO EFFUSION Doppler, 11/21/2024: 1. No hemodynamically significant stenosis noted in the right carotid system. 2. No hemodynamically significant stenosis noted in the left carotid system. CT head, 11/21/2024: No acute intracranial pathology. Question subacute CVA versus resolving hematoma right frontal lobe (There is an area of encephalomalacia in the right frontal lobe. Small lacunar infarct in the left external capsule/ lentiform nucleus MRI brain, 11/22/2024: No acute cerebrovascular ischemia. Right frontal encephalomalacia. Extensive susceptibility foci diffusely which could represent sequela of hypertensive versus amyloid angiopathy. Correlate clinically. vital signs Vital Sign Date Time Temp Pulse Resp B/P (MAP) Pulse Ox O2 Delivery O2 Flow Rate FiO2 11/22/24 21:58 141/86 11/22/24 20:00 70 11/22/24 20:00 18 98 Room Air* 0 21 11/22/24 17:00 97.7 97.7 Total Intake and Output 11/21/24 11/21/24 11/22/24 15:00 23:00 07:00 Intake Total 0 ml Balance 0 ml medications Current Medications Medications Dose Ordered Sig/Kiran Route Start Time Stop Time Status Last Admin Dose Admin Lorazepam 1 mg ONCE PRN IV 11/21/24 21:00 Ibuprofen 600 mg Q8HP PRN PO 11/22/24 01:45 11/22/24 21:58 600 MG Acetaminophen 650 mg Q6HP PRN PO 11/22/24 01:45 Hydralazine HCl 50 mg Q12HR PO 11/22/24 10:00 11/22/24 21:58 50 MG Lisinopril 20 mg DAILY PO 11/22/24 10:00 11/22/24 09:16 20 MG Pantoprazole Sodium 40 mg DAILY@0600 PO 11/22/24 06:00 11/22/24 06:15 40 MG Amiodarone HCl 100 mg DAILY PO 11/22/24 10:00 11/22/24 09:17 100 MG Gabapentin 100 mg HS PO 11/22/24 22:00 11/22/24 21:57 100 MG Atorvastatin Calcium 40 mg HS PO 11/22/24 22:00 11/22/24 21:56 40 MG Insulin Glargine 10 units HS SC 11/22/24 22:00 11/22/24 22:13 10 UNITS Diagnostic Test (Pha) 1 strip ACHS 11/22/24 07:00 11/22/24 22:00 1 STRIP Insulin Human Regular AC SC 11/22/24 07:00 11/22/24 17:14 2 UNITS Dextrose 50 ml UD PRN IV 11/22/24 04:45 objective General: the patient is well developed and nourished. No acute distress. MENTAL STATUS: Subjective SPEECH, LANGUAGE, HIGHER CORTICAL FUNCTION: no aphasia or dysathria. CRANIAL NERVES: Pupils are equal, round and reactive. EOMs full and conjugate. Facial sensation intact in all three divisions bilaterally. Mandibular strength intact. Facial muscles symmetrical and strength intact. SENSATION: Sensation to touch and pinprick is normal. MOTOR: Normal tone in the upper and lower extremity. Normal muscle bulk. No fasciculations. She has continuous tremor in the hands and legs, Muscle strength of the major groups in the extremities is 5/5. REFLEXES: Deep tendon reflexes normal and symmetrical. No pathological reflexes. CEREBELLAR/COORDINATION: Finger to nose is normal bilaterally. GAIT/STATION: Unremarkable laboratory and microbiology Laboratory Tests 11/22/24 05:24 Test 11/22/24 05:24 Range/Units Serum Glucose 200 H 74-106 mg/dL Problem List New onset daily headache, etiology unclear Possible stroke versus resolving hematoma in right frontal lobe per CT scan Chronic multiple strokes (Per history and CT head) Tremors, secondary to hypoglycemia Assessment/Plan Monitoring Supportive treatment Telemetry Resume anticoagulation and notify the primary care team in AM More recommendation per clinical course This medical document was created using an electronic medical record system with [employer] dictation system. Although this document has been carefully reviewed, there may still be some phonetic and typographical errors. These areas are purely typographical due to imperfections of the software programs, and do not reflect any compromise in the patient's medical care Prognosis poor Plan discussed with: Patient, Other Total Time (mins): 35 SRINATH PONCE MD Nov 22, 2024 23:20
[2024-11-23] VITALS (8 sets, daily range): BP systolic 121–143; BP diastolic 56–97; PULSE 64–83; RESP 16–18; TEMP 37; O2SAT 94–98
[2024-11-23 07:12] LABS: Basophils # (auto) 0.1 10 ^3/uL (0-0.2); Eosinophils # (auto) 0.2 10 ^3/uL (0-0.8); Eosinophils % (auto) 3.3 % (0.0-7.0); Hemoglobin 14.4 g/dL (12.2-16.2); Lymphocytes # (auto) 2.1 10 ^3/uL (0.4-5.4); Lymphocytes % (auto) 37.6 % (10.0-50.0); Mean Corpuscular Hemoglobin 29.4 pg (28.0-32.0); Mean Corpuscular Hgb Conc. 33.6 g/dL (32.0-36.0); Mean Corpuscular Volume 87.4 fL (80.0-100.0); Monocytes # (auto) 0.4 10 ^3/uL (0-1.3); Monocytes % (auto) 6.8 % (0.0-12.0); Neutrophils # (auto) 2.9 10 ^3/uL (1.6-8.6); Neutrophils % (auto) 51.3 % (37.0-80.0); Nucleated Red Blood Cells % 0.3 %; Platelet Count (auto) 182 10^3/uL (140-450); Red Blood Cells 4.91 10^6/uL (4.0-5.20); Red Cell Distribution Width 14.8 % (11.8-14.3); White Blood Cell 5.7 10^3/uL (4.4-10.8)
[2024-11-23 07:14] LABS: Potassium 4.4 mmol/L (3.5-5.1); Sodium 141 mmol/L (136-145)
[2024-11-23 07:15] LABS: Anion Gap 9 (5-15); Carbon Dioxide 25 mmol/L (20-31)
[2024-11-23 07:16] LABS: Calcium 10.1 mg/dL (8.7-10.4); Chloride 107 mmol/L (98-107)
[2024-11-23 07:20] LABS: BUN/Creatinine Ratio 14.1 (10.0-20.0); Blood Urea Nitrogen 14 mg/dL (9-23)
[2024-11-23 07:28] LABS: Glucose 135 mg/dL (74-106)
[2024-11-23] MEDS: SUMAtriptan SUCCINATE 25 MG TAB PO ONE (09:29)
[2024-11-23] MEDS: ENOXAPARIN SOD 100 MG/1 ML SYRINGE SC SCH (09:30)
[2024-11-23] MEDS ORDERED: SUMA100T15 PO (11:56)
--- NOTE | 2024-11-23 12:10 | DVHDSRES ---
Discharge Summary Date of Admission Resident Creating Document: YARELI ANGELES RESIDENT Nov 21, 2024 at 23:52 Date of Discharge: Nov 23, 2024 Admitting Diagnosis Severe headaches Labs/Diagnostic Data: Laboratory Results Test 11/23/24 06:32 11/22/24 16:48 11/22/24 05:24 11/21/24 18:40 White Blood Count 5.7 10^3/uL (4.4-10.8) Red Blood Count 4.91 10^6/uL (4.0-5.20) Hemoglobin 14.4 g/dL (12.2-16.2) Hematocrit 43.0 % (36.0-46.0) Mean Corpuscular Volume 87.4 fL (80.0-100.0) Mean Corpuscular Hemoglobin 29.4 pg (28.0-32.0) Mean Corpuscular Hemoglobin Concent 33.6 g/dL (32.0-36.0) Red Cell Distribution Width 14.8 % (11.8-14.3) Platelet Count 182 10^3/uL (140-450) Mean Platelet Volume 10.3 fL (6.9-10.8) Neutrophils (%) (Auto) 51.3 % (37.0-80.0) Lymphocytes (%) (Auto) 37.6 % (10.0-50.0) Monocytes (%) (Auto) 6.8 % (0.0-12.0) Eosinophils (%) (Auto) 3.3 % (0.0-7.0) Basophils (%) (Auto) 1.0 % (0.0-2.0) Neutrophils # (Auto) 2.9 10 ^3/uL (1.6-8.6) Lymphocytes # (Auto) 2.1 10 ^3/uL (0.4-5.4) Monocytes # (Auto) 0.4 10 ^3/uL (0-1.3) Eosinophils # (Auto) 0.2 10 ^3/uL (0-0.8) Basophils # (Auto) 0.1 10 ^3/uL (0-0.2) Nucleated Red Blood Cells 0.3 % Sodium Level 141 mmol/L (136-145) Potassium Level 4.4 mmol/L (3.5-5.1) Chloride Level 107 mmol/L (98-107) Carbon Dioxide Level 25 mmol/L (20-31) Anion Gap 9 (5-15) Blood Urea Nitrogen 14 mg/dL (9-23) Creatinine 0.99 mg/dL (0.550-1.02) Glomerular Filtration Rate Calc 62 mL/min (>90) BUN/Creatinine Ratio 14.1 (10.0-20.0) Serum Glucose 135 mg/dL (74-106) Calcium Level 10.1 mg/dL (8.7-10.4) POC Glucose 156 mg/dl (70-106) Prothrombin Time 11.4 sec (9.3-11.8) Prothrombin Time INR 1.08 (0.9-1.15) Activated Partial Thromboplast Time 42.7 SEC (24.5-34.5) Hemoglobin A1c 8.2 % A1C (<5.7) Total Bilirubin 0.4 mg/dL (0.2-1.0) Aspartate Amino Transferase (AST) 15 U/L (<34) Alanine Aminotransferase (ALT) 10 U/L (7-40) Alkaline Phosphatase 73 U/L (46-116) Total Protein 6.2 g/dL (5.7-8.2) Albumin 3.9 g/dL (3.2-4.8) Triglycerides Level 129 mg/dL (< 150) Cholesterol Level 112 mg/dL (< 200) LDL Cholesterol 52 mg/dL (< 100) HDL Cholesterol 42 mg/dL (40-59) Vitamin B12 Level 550 pg/mL (211-911) Folic Acid 17.02 ng/mL (>5.38) Urine Color Yellow (Yellow) Urine Clarity Clear (Clear) Urine pH 5.5 (5.0-9.0) Urine Specific [place] 1.025 (1.001-1.035) Urine Protein Trace (Negative) Urine Ketones Negative (Negative) Urine Blood Negative /uL (Negative) Urine Nitrite Negative (Negative) Urine Bilirubin Negative (Negative) Urine Urobilinogen Normal mg/dL (Negative) Urine Leukocyte Esterase Negative /uL (Negative) Urine RBC 1 /hpf (0 - 4) Urine Microscopic WBC 3 /HPF (0-5) Urine Squamous Epithelial Cells Few /hpf (<5) Urine Bacteria None seen /hpf (None Seen) Urine Hyaline Casts Few /lpf (0 - 2) Urine Mucus Few (None Seen) Urine Glucose Normal mg/dL (Normal) Other Laboratory Tests 6/28/25 06:32 Brief Hx & Hospital Course: 69-year-old female with a past medical history of atrial fibrillation, hypertension, type 2 diabetes mellitus, multiple strokes, hyperlipidemia presented to the ER with a chief complaint of headache for the last 4-5 days. Patient reported that she has been having headaches since the last 4-5 days which is on the right side, associated nausea and photophobia, chills denied any fever. Patient reported that she had an episode of blurred, dark vision for less than a minute 2 days ago, denied any history of fall or loss of consciousness. Patient denied any focal weakness. She does report history of migraine headaches. From the history of strokes patient has a residual left- sided mild weakness and earlier she used to have a stick to help with the walking but now she walks independently. Patient denied any difficulty swallowing, no difficulty with the speech. Initial head CT without contrast showed questionable subacute CVA versus resolving hematoma of the right frontal lobe, no acute intracranial pathology following which neurology were consulted who recommended the patient to get an MRI, carotid Doppler, echocardiogram and continue monitoring. Doppler shows no Cariiiiiiiotid artery stenosis. During the hospitalization, CT head without contrast showed no acute intracranial abnormality but questionable subacute CVA versus resolving hematoma right frontal lobe. MRI brain showed no acute cerebrovascular ischemia, right frontal encephalomalacia. Extensive susceptibility foci diffusely which could represent sequela of hypertensive versus amyloid angiopathy. Correlate clinically. Neurology was consulted and for the testing including Carotid Doppler was completed which showed no hemodynamically significant stenosis. Stroke was ruled out, patient's home medication rosuvastatin was continued during the stay. Given the history of AFib anticoagulation was continued the soon as the stroke was ruled out. Home medications for blood pressure were given during the stay. We continued patient on Lantus 10 units and sliding scale. Given the history of migraine like headache, sumatriptan 50 mg was given for abortive which relieved the patient's headache. 11/23-patient is hemodynamically stable, reports no acute distress. Therefore she has been discharged home with the recommendations to resume home medication, continue sumatriptan to abort headaches. Side effects advised. Patient will follow up with [facility] as outpatient. Discharge clinic appointment will be made. Patient and at bedside agreed to discharge planning. All questions and concerns answered. Physical exam on the day of discharge: Patient lying in bed, reports headache but otherwise no acute distress. General: Obese, no pallor, mucosae are moist Cardiovascular: Regular S1 and S2. No murmurs, gallops or rubs. No JVD elevation. No pedal edema Respiratory: Normal B/L air entry on room air. Clear lung sounds on auscultation Abdomen: Soft, nontender, nondistended, normoactive bowel sounds, no rebound tenderness, no organomegaly, no masses Genitourinary: Deferred MSK/skin: Mobilizes 4 limbs. Skin is dry and warm Neurological: No motor, no sensitive deficits in bilateral upper and lower extremity, no aphasia, Pupils are isocoric and reactive. Left facial palsy (no change from before so no new focal deficit). Facial sensation intact in V1/V2/V3 Patient can write her name, can draw clock. [id number] testing unremarkable. Goals of care discussed with the patient, and her family for 20 minutes, full code Case discussed with Dr. Weldon Consults/Reason for consult Neurology consulted for acute severe headaches Operations or Procedures ORDERING PHYSICIAN: SRINATH PONCE MD PROCEDURE(s): MBHL - BRAIN HEAD WO CONTRAST REASON: CVA ORDER NUMBER(s): [id number], ACCESSION NUMBER(s): [id number] PROCEDURE: MRI BRAIN HEAD WO CONTRAST Indication: CVA COMPARISON: CT head from 11/21/2024 TECHNIQUE: Multiplanar multisequence images of the brain are obtained. FINDINGS: There is no abnormal diffusion restriction. Right frontal encephalomalacia. Prominent left basal ganglia perivascular space. There is no intracranial hemorrhage. No extra-axial fluid collection, mass effect or midline shift. The ventricles are midline and normal in size. The cisterns are patent. Normal intracranial flow voids are preserved. Numerous scattered foci susceptibility diffusely throughout the cerebrum and posterior fossa in cortical and subcortical locations. The sinuses and mastoids are well pneumatized. The visualized orbits are unremarkable. IMPRESSION: No acute cerebrovascular ischemia. Right frontal encephalomalacia. Extensive susceptibility foci diffusely which could represent sequela of hypertensive versus amyloid angiopathy. Correlate clinically. ATED BY: MIKAEL CARTER MD DICTATED DATE/TIME: 11/22/24 1420 SIGNED BY: MIKAEL CARTER MD SIGNED DATE/TIME: 11/22/24 1420 CC: Condition at Discharge: Stable Final Diagnosis/Problems List Acute intractable headache; possible migraine with aura Ruled out acute stroke History of multiple strokes paroxysmal AFib S/p permanent pacemaker implantation in 2022 Hypertensive heart disease Hypertension Type 2 diabetes mellitus-A1c 8.2 Morbid Obesity Discharge Disposition: Home Discharge Instruct/Medications Diet: Cardiac 2g Na,low cholest Activity: Light activity Follow Up/Referral: Follow up with primary care physician within 7 days Medications: Sumatriptan 50 mg daily as needed for migraine attack Resume home medications Discharge Statement: "Patient was advised to return to the ER or call 911 if any headaches, dizziness, shortness of breath, chest pain, abdominal pain, bleeding, fevers, or worsening of medical condition. Patient was counseled about treatment plan, medications, possible side effects, patientverbalized understanding. All questions were answered to the best of my ability. This discharge took greater then 30 minutes in planning, reviewing documentation, counseling the patient, and discussing with other team members." ASSESSMENT ASSESSMENT Assessment Acute intractable headache Possible migraine with aura Ruled out acute stroke Addendum Addendum Addendum I was physically present for the lee portions of the service provided to patient by THE RESIDENT. I have reviewed the documentation, discussed the case with resident and agree with the resident's documentation except as noted. Also the patient's clinical case was discussed with the patient's nurse. This medical document was created using an electronic medical record system with computerized dictation system. Although this document has been carefully reviewed, there might still be some phonetic and typographical errors. These areas are purely typographical due to imperfections of the software programs, and do not reflect any compromise in the patient's medical care. Late signature. Date of Service: Nov 23, 2024 Billing Provider: PRISCILA WELDON MD Common Visit Codes: 79035-YDE/OBS DISCH DAY >30min Secondary Visit Codes: 64761-IHWHPBMQ CARE PLAN 30 MINUTES (20 minutes) YARELI AGNELES RESIDENT Nov 23, 2024 12:10 PRISCILA WELDON MD Nov 25, 2024 06:54
== END 2024-11-23 17:20 | disposition home or self-care (01) | DRG 103 ==
LOC: ER 09:31 → OVERFLOW 23:52 → TELE-WESTW 11-22 02:30
PROVIDERS: ADMIT Student in an Organized Health Care Education/Training Program; ATTEND Student in an Organized Health Care Education/Training Program
DX: G43.109 Migraine with aura, not intractable, without status migrainosus (principal); I48.0 Paroxysmal atrial fibrillation; E66.9 Obesity, unspecified; E11.42 Type 2 diabetes mellitus with diabetic polyneuropathy; E78.5 Hyperlipidemia, unspecified; E11.649 Type 2 diabetes mellitus with hypoglycemia without coma; F17.200 Nicotine dependence, unspecified, uncomplicated; I10 Essential (primary) hypertension; Z79.84 Long term (current) use of oral hypoglycemic drugs; Z79.02 Long term (current) use of antithrombotics/antiplatelets; Z86.73 Personal history of transient ischemic attack (TIA), and cerebral infarction without residual deficits; Z95.0 Presence of cardiac pacemaker; Z83.3 Family history of diabetes mellitus; Z82.49 Family history of ischemic heart disease and other diseases of the circulatory system; Z68.35 Body mass index [BMI] 35.0-35.9, adult
CPT/HCPCS: 36415; 70450; 70551; 80048; 80053; 80061; 81001; 82607; 82746; 82962; 83036; 85025; 85610; 85730; 93306; 93886; 96372; G0378; J1815